=== PATIENT | female | born 1985 | race Caucasian/White ===

== ENCOUNTER 2017-08-06 20:06 | Emergency (ER) | payer OTHER ==
[2017-08-06] MEDS: ACETAMINOPHEN 325 MG TAB PO (22:32)
== END 2017-08-07 00:09 | disposition home or self-care (01) ==
LOC: FTE 08-07 00:09
DX: O99.512 Diseases of the respiratory system complicating pregnancy, second trimester (principal); J06.9 Acute upper respiratory infection, unspecified; R10.2 Pelvic and perineal pain; Z3A.17 17 weeks gestation of pregnancy
CPT/HCPCS: 76805; 93005; 99284-25

== ENCOUNTER 2018-01-14 23:52 | Inpatient (IN) | payer OTHER ==
[2018-01-15] MEDS ORDERED: METHYLERGONOVINE 0.2 MG INJ IM (01:00)
[2018-01-15] MEDS ORDERED: CARBOPROST 250 MCG INJ IM (01:00)
[2018-01-15] MEDS ORDERED: LIDOCAINE 1% (MPF) 30 ML INJ INJ (01:00)
[2018-01-15] MEDS ORDERED: MISOPROSTOL 200 MCG TAB PR (01:00)
[2018-01-15] MEDS ORDERED: OXYTOCIN 30 UNITS/LR 500 ML IV (01:00)
[2018-01-15] MEDS ORDERED: FENTAnyl 2MCG/ML-ROPIV 0.2% 100 ML (01:40)
[2018-01-15] MEDS: LACTATED RINGER'S 1,000 ML IV* ×2 (01:50→05:40)
[2018-01-15] MEDS: AMPICILLIN 2 GM/NS (PMX) 100 ML IV (01:50)
[2018-01-15] MEDS ORDERED: NALOXONE (0.4 MG/ML) INJ IV (02:00)
[2018-01-15] MEDS ORDERED: FENTAnyl 2MCG/ML-ROPIV 0.2% 100 ML BAG EPI (02:00)
[2018-01-15 02:14] LABS: WHITE BLOOD COUNT 8.9 10^3/ul (4.8-10.8)
[2018-01-15 02:14] LABS: ADD MAN DIFF? NO; BASOPHILS % 0.5 % (0.0-2.0); EOSINOPHILS # 0.1 10^3/ul (0.0-0.5); EOSINOPHILS % 0.9 % (0.0-7.0); HEMATOCRIT 33.1 % (37.0-47.0); HEMOGLOBIN 10.9 g/dl (12.0-16.0); LYMPHOCYTES # 1.7 10^3/ul (0.8-2.9); LYMPHOCYTES % 19.4 % (15.0-51.0); MEAN CORPUSCULAR HEMOGLOBIN 27.9 pg (29.0-33.0); MEAN CORPUSCULAR HGB CONC 32.9 g/dl (32.0-37.0); MEAN CORPUSCULAR VOLUME 84.7 fl (82.0-101.0); MEAN PLATELET VOLUME 10.3 fl (7.4-10.4); MONOCYTE # 0.6 10^3/ul (0.3-0.9); MONOCYTES % 6.8 % (0.0-11.0); NEUTROPHIL # 6.4 10^3/ul (1.6-7.5); NEUTROPHILS % 72.1 % (39.0-77.0); PLATELET COUNT 226 10^3/UL (140-415); RED BLOOD COUNT 3.91 10^6/ul (4.20-5.40); RED CELL DISTRIBUTION WIDTH 14.4 % (11.5-14.5)
[2018-01-15 02:35] LABS: INR 0.98; PARTIAL THROMBOPLASTIN TIME 28.6 Sec (23.0-35.0); PROTIME 13.1 Sec (11.9-14.9)
[2018-01-15] MEDS: AMPICILLIN 1 GM/NS (PMX) 50 ML IV (05:41)
[2018-01-15] MEDS: OXYTOCIN 30 UNITS/LR 500 ML IV ×3 (10:08→17:17)
[2018-01-15] MEDS: IBUPROFEN 600 MG TAB PO ×3 (11:41→23:48)
[2018-01-15] MEDS ORDERED: HYDROCODONE/APAP (5/325) TAB PO ×2 (15:00)
[2018-01-15] MEDS ORDERED: ACETAMINOPHEN 325 MG TAB PO (15:00)
[2018-01-15] MEDS ORDERED: WITCH HAZEL/GLYCERIN PAD PR (15:00)
[2018-01-15] MEDS ORDERED: BENZOCAINE 20% 56 ML SPRAY TOP (15:00)
[2018-01-15] MEDS ORDERED: DIBUCAINE 1% 30 GM OINT PR (15:00)
[2018-01-15] MEDS ORDERED: OXYCODONE/ASPIRIN (4.88/325) TAB PO ×2 (15:00)
[2018-01-15] MEDS ORDERED: ONDANSETRON 4 MG INJ IV (15:00)
[2018-01-15 15:20] LABS: RAPID PLASMA REAGIN NONREACTIVE (NR)
[2018-01-16] MEDS: IBUPROFEN 600 MG TAB PO ×4 (05:43→23:35)
[2018-01-16] MEDS: SENNA/DOCUSATE NA (8.6MG/50MG) TAB PO ×2 (08:48→21:35)
[2018-01-16] MEDS: LANOLIN 7 GM TUBE TOP (08:48)
[2018-01-16 08:54] LABS: ADD MAN DIFF? NO
[2018-01-16 09:02] LABS: BASOPHILS % 0.3 % (0.0-2.0); EOSINOPHILS # 0.1 10^3/ul (0.0-0.5); EOSINOPHILS % 1.8 % (0.0-7.0); HEMATOCRIT 31.8 % (37.0-47.0); HEMOGLOBIN 10.2 g/dl (12.0-16.0); LYMPHOCYTES # 1.9 10^3/ul (0.8-2.9); LYMPHOCYTES % 24.1 % (15.0-51.0); MEAN CORPUSCULAR HGB CONC 32.1 g/dl (32.0-37.0); MEAN CORPUSCULAR VOLUME 87.4 fl (82.0-101.0); MEAN PLATELET VOLUME 10.2 fl (7.4-10.4); MONOCYTE # 0.5 10^3/ul (0.3-0.9); MONOCYTES % 6.7 % (0.0-11.0); NEUTROPHIL # 5.2 10^3/ul (1.6-7.5); NEUTROPHILS % 66.7 % (39.0-77.0); PLATELET COUNT 212 10^3/UL (140-415); RED BLOOD COUNT 3.64 10^6/ul (4.20-5.40); RED CELL DISTRIBUTION WIDTH 14.5 % (11.5-14.5)
[2018-01-16 09:02] LABS: WHITE BLOOD COUNT 7.8 10^3/ul (4.8-10.8)
[2018-01-16] MEDS: INFLUENZA VIRUS VACCINE 0.5 ML (DISPENSING) IM* (12:46)
[2018-01-17] MEDS: IBUPROFEN 600 MG TAB PO ×3 (05:26→18:15)
[2018-01-17] MEDS: SENNA/DOCUSATE NA (8.6MG/50MG) TAB PO (09:00)
[2018-01-17] MEDS: MEASLES,MUMPS,RUBELLA VACCINE INJ SC* (09:00)
== END 2018-01-17 20:05 | disposition home or self-care (01) | DRG 807 ==
LOC: OBT 23:52 → L-D 23:54 → PP1 01-15 12:50
PROVIDERS: Obstetrics & Gynecology
PROC: 10E0XZZ Delivery of Products of Conception, External Approach (ICD-10-PCS; principal; 2018-01-15)
DX: O80 Encounter for full-term uncomplicated delivery (principal); Z37.0 Single live birth; Z3A.39 39 weeks gestation of pregnancy; Z23 Encounter for immunization
CPT/HCPCS: 85025; 85610; 85730; 86592; 86850; 86900; 86901; 90686; 99464